=== PATIENT | female | born 1960 | race Caucasian/White ===

== ENCOUNTER 2019-11-25 13:03 | Emergency (ER) | payer MEDICARE, SELFPAY ==
[2019-11-25 13:08] VITALS: BP 207/119; PULSE 84; RESP 18; TEMP 36.7; O2SAT 98; BMI 31.2
--- NOTE | 2019-11-25 13:22 | XRR_ITS ---
PROCEDURE INFORMATION: Exam: XR Left Ribs with PA Chest, 3 Views Exam date and time: 11/25/2019 1:23 PM Age: 59 years old Clinical indication: Injury or trauma; Fall; Initial encounter; Rib area, left side; Blunt trauma TECHNIQUE: Imaging protocol: XR Left ribs 3 views with PA chest. COMPARISON: [place] Chest 1 [place] [id number] 01/03/2017 8:07 PM FINDINGS: Lungs: There is mild linear scarring and/or atelectasis at the left lung base. Pleural space: Unremarkable. No pleural effusion. No pneumothorax. Heart/Mediastinum: Unremarkable. No cardiomegaly. Bones/joints: There is contour abnormality at the posterolateral aspect of the right 4th and 5th ribs consistent with fracture of unknown chronicity. XR/XR ribs RT mn 3V w [id number] IMPRESSION: There is contour abnormality at the posterolateral aspect of the right 4th and 5th ribs consistent with fracture of unknown chronicity.
--- NOTE | 2019-11-25 13:22 | W.ED.FALL ---
HPI - Fall General: Chief Complaint: Fall Stated Complaint: rib pain/fall Time Seen by Provider: 11/25/19 13:14 History of Present Illness: HPI Narrative: patient says she fell 2 days ago while she was sweeping the floor landing on her right side and she has pain in her right rib area denies any loss of consciousness no vomiting no neurological symptoms MD complaint: fall Onset (ago): day(s) Fall from: standing Fall witnessed: no Place fall occurred: home Loss of consciousness: None Symptoms prior to fall: none Context: tripped/slipped Location of injury: other Severity: mild Associated symptoms-after fall: Denies abdominal pain, chest pain or headache(s) Review of Systems Narrative: Right rib area sore. Has no bruising no swelling. Loss of consciousness Const: Denies: fever(s), chills or body aches Eyes: Denies: change in vision or blurry vision ENMT: Denies: throat pain or nasal congestion Card: Denies: chest pain or dyspnea on exertion Resp: Denies: dyspnea, productive cough or non-productive cough GI: Denies: abdominal pain, nausea or vomiting Musc: Denies: extremity pain Skin/Breast: Denies: rash Neuro: Denies: headache(s) Psych: Denies: anxiety or depression Haroon/Lymph: Denies: easy bruising PFSH ED PFSH: Medical History (Updated 11/25/19 @ 14:32 by IFEOMA Blank) Amphetamine and other psychostimulant dependence, in remission Bipolar 2 disorder Cannabis abuse, uncomplicated Chronic post-traumatic stress disorder Generalized anxiety disorder Social History Smoking and tobacco status: never smoked Physical Exam Const: COMMON NORMALS: no acute distress, average body habitus and patient oriented x3 HENMT: COMMON NORMALS: normocephalic HEAD & SCALP: normal to inspection and normocephalic FACE & SINUS: normal facial exam Eye: COMMON NORMALS: conjunctivae normal GENERAL EYE: appearance normal, both eyes and all related structures CONJUNCTIVA: Yes conjunctivae normal Neck/C-Spine: COMMON NORMALS: no JVD Chest: COMMONS NORMALS: normal inspection of the chest; negative for normal palpation of entire chest wall (Tenderness right rib area no bruising no swelling no abrasion) Resp: COMMON NORMALS: normal respiratory effort and clear to auscultation bilaterally AUSCULTATION: clear to auscultation bilaterally Cardio: COMMON NORMALS: no JVD, regular rate and regular rhythm RATE: regular rate RHYTHM: regular rhythm GI: COMMON NORMALS: Normal to inspection, nondistended, normoactive bowel sounds present Extremity: COMMON NORMALS: normal to inspection and full ROM Neuro: COMMON NORMALS: patient oriented x3 Course Vital Signs: Vital signs: Vital Signs Temperature 98.0 F 11/25/19 13:08 Pulse Rate 84 11/25/19 13:08 Respiratory Rate 18 11/25/19 13:08 Blood Pressure 207/119 11/25/19 13:08 Pulse Oximetry 98 11/25/19 13:08 MDM - Fall Imaging Data^: CXR: My impression: Rib abnormality right fourth fifth rib does not appear to be an acute fracture Discharge Plan Discharge Patient Disposition: Home, Self-Care Clinical Impression: Contusion of rib on right side Qualifiers: Encounter type: initial encounter Qualified Code(s): S20.211A - Contusion of right front wall of thorax, initial encounter Condition: Stable Prescriptions: No Action buspirone 30 mg tablet 30 mg PO BID Qty: 60 RF: 1 carbamazepine [Tegretol] 200 mg tablet 200 mg PO BID Qty: 60 RF: 2 quetiapine [Seroquel XR] 400 mg tablet extended release 24 hr 400 mg PO .daily at 5 PM Qty: 30 RF: 2 venlafaxine [Effexor XR] 150 mg capsule,extended release 24hr 150 mg PO QAM Qty: 30 RF: 2 trazodone 100 mg tablet 100 - 200 mg PO BEDTIME PRN (Reason: sleep) RF: 0 Seroquel 50 mg tablet 25 - 50 mg PO BEDTIME RF: 0 Discharge Orders: Discharge Order (Routine); Ordered 11/25/19 Ordered By: Reuben Jefferson Referrals: Elisa Awad NP [Primary Care Provider] - Discharge Diet: Usual diet Discharge Activity: Resume usual activity Patient Instructions: Contusion in Adults (ED) Activity Restrictions/Additional Instructions: Follow-up with your family medical provider if no significant improvement can take Tylenol or ibuprofen for pain can apply ice to the area. Coding Level of Care Code ED Collaborative Physician for Lucinda Fwfrancisco Exam Comprehensive
[2019-11-25 14:47] VITALS: BP 158/121; PULSE 75; RESP 16; O2SAT 98
== END 2019-11-25 14:48 | disposition home or self-care (01) ==
PROVIDERS: Emergency Provider Nurse Practitioner Family; PCP Nurse Practitioner Family
DX: S20.211A Contusion of right front wall of thorax, initial encounter (principal); W19.XXXA Unspecified fall, initial encounter
CPT/HCPCS: 12345; 71101; 99282

== ENCOUNTER → 2020-12-10 11:35 | Outpatient (BNVA) | payer MEDICARE, SELFPAY | PROVIDERS: PCP Nurse Practitioner Family; Visit Provider Registered Nurse | DX: Z79.899 Other long term (current) drug therapy (principal) | CPT/HCPCS: 36415; 80061; 83036 ==

== ENCOUNTER → 2021-04-13 14:00 | Outpatient (BNVA) | payer MEDICARE, SELFPAY | PROVIDERS: PCP Nurse Practitioner Family; Visit Provider Registered Nurse | DX: Z79.899 Other long term (current) drug therapy (principal) | CPT/HCPCS: 36415; 80053; 80156; 82306; 84443; 85025 ==

== ENCOUNTER → 2022-02-18 08:30 | Outpatient (BNVA) | payer MEDICARE, SELFPAY | PROVIDERS: PCP Family Medicine; Visit Provider Registered Nurse | DX: R06.83 Snoring (principal); G47.00 Insomnia, unspecified; F31.81 Bipolar II disorder; F43.12 Post-traumatic stress disorder, chronic; F41.1 Generalized anxiety disorder; F12.10 Cannabis abuse, uncomplicated; F15.21 Other stimulant dependence, in remission; Z79.899 Other long term (current) drug therapy | CPT/HCPCS: 80053; 80061; 80157; 82306; 83036; 84443; 85025 ==

== ENCOUNTER → 2022-10-21 11:00 | Outpatient (BNVA) | payer MEDICARE, BC, MEDICAID, SELFPAY | PROVIDERS: PCP Family Medicine; Visit Provider Registered Nurse | DX: Z79.899 Other long term (current) drug therapy (principal); R06.83 Snoring | CPT/HCPCS: 80053; 80061; 80156; 80306; 82306; 82607; 83036; 83540; 85025 ==